=== PATIENT | male | born 1945 | race Caucasian/White ===

== ENCOUNTER → 2016-12-07 | Outpatient (CLI) | payer MEDICARE, OTHER ==
[~2016-12-07] MED LIST: ADULT LOW DOSE81 MG PO; FLOMAX0.4 MG PO; LISINOPRIL20 MG PO; LORTAB 500 MG-11 TAB PO; SIMVASTATIN40 MG PO
[2016-12-07 17:44] LABS: AEROMONAS NOT DETECTED (NOT DETECTE); ASTROVIRUS NOT DETECTED (NOT DETECTE); CYCLOSPORA CAYETANENSIS NOT DETECTED (NOT DETECTE); E COLI O157 NOT DETECTED (NOT DETECTE); ENTEROAGGREGATIVE E COLI NOT DETECTED (NOT DETECTE); ENTEROPATHOGENIC E COLI NOT DETECTED (NOT DETECTE); ENTEROTOXIGENIC E COLI NOT DETECTED (NOT DETECTE); SAPOVIRUS NOT DETECTED (NOT DETECTE); SHIGA-LIKE TOXIN PROD. E COLI NOT DETECTED (NOT DETECTE); SHIGELLA/ENTEROINVASIVE E COLI NOT DETECTED (NOT DETECTE); VIBRIO CHOLERAE NOT DETECTED (NOT DETECTE)
[2016-12-07 22:37] LABS: NOROVIRUS DETECTED (NOT DETECTE)
== END ==
LOC: LAB 17:42
PROVIDERS: Nurse Practitioner Family
DX: G56.20 Lesion of ulnar nerve, unspecified upper limb (principal)